=== PATIENT | female | born 1985 | race Caucasian/White ===

== ENCOUNTER 2018-03-17 08:38 | Emergency (ER) | payer BC ==
[2018-03-17 08:49] VITALS: BP 133/82
[2018-03-17 10:06] LABS: ABSOLUTE LYMPHOCYTES (AUTO) 1.8 10^3/uL (0.5-4.7); ABSOLUTE MONOCYTES (AUTO) 0.5 10^3/uL (0.1-1.4); ABSOLUTE NEUT (AUTO) 6.2 10^3/uL (1.7-8.2); BASOPHILS % (AUTO) 0.5 % (0-2); EOSINOPHILS % (AUTO) 0.3 % (0-6); HEMATOCRIT 40.4 % (36.0-47.0); HEMOGLOBIN 14.1 g/dL (12.0-15.5); MEAN CORPUSCULAR HEMOGLOBIN 31.8 pg (27.0-33.4); MEAN CORPUSCULAR VOLUME 91 fl (80-97); MONOCYTES % (AUTO) 5.8 % (3-13); PLATELET COUNT 240 10^3/uL (150-450); RED BLOOD COUNT 4.44 10^6/uL (3.72-5.28); RED CELL DISTRIBUTION WIDTH 12.4 % (11.5-14.0); SEGMENTED NEUTROPHILS % (AUTO) 72.4 % (42-78); TOTAL CELLS COUNTED % (AUTO) 100 %; WHITE BLOOD COUNT 8.6 10^3/uL (4.0-10.5)
[2018-03-17 10:17] LABS: APPEARANCE,URINE SLIGHTLY-CLOUDY; COLOR,URINE YELLOW; GLUCOSE, URINE NEGATIVE (NEGATIVE)
[2018-03-17 10:18] LABS: BILIRUBIN,URINE NEGATIVE (NEGATIVE); KETONES,URINE 100 mg/dL (NEGATIVE); LEUKOCYTE ESTERASE,URINE LARGE (NEGATIVE); NITRITE,URINE NEGATIVE (NEGATIVE); PROTEIN,URINE 30 mg/dL (NEGATIVE); URINE SPECIFIC GRAVITY 1.027; UROBILINOGEN,URINE NEGATIVE mg/dL (<2.0)
[2018-03-17 10:34] LABS: ALANINE AMINOTRANSFERASE 22 U/L (9-52); ALBUMIN 4.5 g/dL (3.5-5.0); ALKALINE PHOSPHATASE 40 U/L (38-126); ANION GAP 12 (5-19); ASPARTATE AMINO TRANSFERASE 22 U/L (14-36); BILIRUBIN,DIRECT 0.4 mg/dL (0.0-0.4); BLOOD UREA NITROGEN 18 mg/dL (7-20); CALCIUM 9.5 mg/dL (8.4-10.2); CARBON DIOXIDE 22 mmol/L (22-30); CHLORIDE 104 mmol/L (98-107); GLUCOSE 81 mg/dL (75-110); LIPASE 98.3 U/L (23-300); POTASSIUM 4.3 mmol/L (3.6-5.0); SODIUM 137.5 mmol/L (137-145); TOTAL PROTEIN 7.8 g/dL (6.3-8.2)
[2018-03-17] MEDS ORDERED: CEFTRIAXONE INJ 1000 MG VIAL IV ONE (11:46)
--- NOTE | 2018-03-17 11:46 | ER Document Report ---
ED GI/ - General Chief Complaint: Vag Bleeding, +preg <12wks Stated Complaint: VAGINAL BLEEDING Time Seen by Provider: 03/17/18 11:15 Mode of Arrival: Ambulatory Information source: Patient Notes: Patient presents stating that she is but uncertain how far long she may be. Patient states she developed vaginal discharge today and has had cramping for the past 2 weeks. Patient denies any fever or back pain. Patient does complain of some nausea. Patient denies any vomiting or diarrhea. Patient denies any fever. TRAVEL OUTSIDE OF THE [place] IN LAST 30 DAYS: No - HPI Patient complains to provider of: Pelvic pain, , Vaginal discharge. No : Vomiting Onset: Other Timing/Duration: Persistent - 2 weeks Quality of pain: Cramping Pain Level: 2 Location: Pelvis Menstrual period history: Sexual history: Active Associated symptoms: Nausea, Vaginal discharge. 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 denies: Fever, Recent illness EENT: No symptoms reported Cardiovascular: No symptoms reported. denies: Chest pain Respiratory: No symptoms reported. denies: Cough Gastrointestinal: Abdominal pain, Nausea. denies: Diarrhea, Vomiting Genitourinary: Dysuria Female Genitourinary: , Vaginal discharge Musculoskeletal: No symptoms reported. denies: Back pain Skin: No symptoms reported Hematologic/Lymphatic: No symptoms reported Neurological/Psychological: No symptoms reported Physical Exam - Vital signs Vitals: Temp Pulse Resp BP Pulse Ox 98.4 F 90 16 133/82 H 100 03/17/18 08:47 03/17/18 08:47 03/17/18 08:47 03/17/18 08:47 03/17/18 08:47 - General General appearance: Appears well, Alert In distress: None - HEENT Head: Normocephalic, Atraumatic Eyes: Normal Conjunctiva: Normal Nasal: Normal Mouth/Lips: Normal Mucous membranes: Normal Neck: Normal, Supple. No: Lymphadenopathy - Respiratory Respiratory status: No respiratory distress Chest status: Nontender Breath sounds: Normal. No: Rales, Rhonchi, Stridor, Wheezing Chest palpation: Normal - Cardiovascular Rhythm: Regular Heart sounds: S1 appreciated, S2 appreciated Murmur: No - Abdominal Inspection: Normal Distension: No distension Bowel sounds: Normal Tenderness: Tender - Lower pelvic Organomegaly: No organomegaly - Genitourinary External exam: Normal Speculum exam: Vaginal discharge Vaginal bleeding: None Bimanuel exam: Normal. No: Cervical motion tender, Adnexal mass, Adnexal tenderness - Back Back: Normal, Nontender. No: CVA tenderness - Extremities General upper extremity: Normal inspection, Normal ROM General lower extremity: Normal inspection, Normal ROM - Neurological Neuro grossly intact: Yes Cognition: Normal [place] Coma Scale Eye Opening: Spontaneous [place] Coma Scale Verbal: Oriented [place] Coma Scale Motor: Obeys Commands [place] Coma Scale Total: 15 - Psychological Associated symptoms: Normal affect, Normal mood - Skin Skin Temperature: Warm Skin Moisture: Dry Skin Color: Normal Course - Re-evaluation Re-evalutation: 03/17/18 13:53 Ultrasound report reviewed, patient with gestational sac without pole at this time. Will give patient ectopic precautions with orders for return in 48 hours for repeat blood draw to further evaluate status. Patient with UTI, no concern for pyelonephritis at this time. Urine culture is pending at this time. - Vital Signs Vital signs: Temp Pulse Resp BP Pulse Ox 98.4 F 90 16 133/82 H 100 03/17/18 08:47 03/17/18 08:47 03/17/18 08:47 03/17/18 08:47 03/17/18 08:47 - Laboratory Result Diagrams: 03/17/18 09:35 03/17/18 09:35 Laboratory results interpreted by me: 03/17/18 03/17/18 09:35 09:35 Beta HCG, Quant 88904.00 H Urine Protein 30 H Urine Ketones 100 H Urine Blood MODERATE H Ur Leukocyte Esterase LARGE H Urine Ascorbic Acid 40 H 03/17/18 13:53 Labs- Entire Visit 03/17/18 03/17/18 03/17/18 09:35 09:35 09:35 WBC 8.6 RBC 4.44 Hgb 14.1 Hct 40.4 MCV 91 MCH 31.8 MCHC 35.0 RDW 12.4 Plt Count 240 Seg Neutrophils % 72.4 Lymphocytes % 21.0 Monocytes % 5.8 Eosinophils % 0.3 Basophils % 0.5 Absolute Neutrophils 6.2 Absolute Lymphocytes 1.8 Absolute Monocytes 0.5 Absolute Eosinophils 0.0 Absolute Basophils 0.0 Sodium 137.5 Potassium 4.3 Chloride 104 Carbon Dioxide 22 Anion Gap 12 BUN 18 Creatinine 0.78 Est GFR ( Amer) > 60 Est GFR (Non-Af Amer) > 60 Glucose 81 Calcium 9.5 Total Bilirubin 1.0 Direct Bilirubin 0.4 Neonat Total Bilirubin Not Reportable Neonat Direct Bilirubin Not Reportable Neonat Indirect Bili Not Reportable AST 22 ALT 22 Alkaline Phosphatase 40 Total Protein 7.8 Albumin 4.5 Lipase 98.3 Beta HCG, Quant 07297.00 H Total Beta HCG POSITIVE Urine Color YELLOW Urine Appearance SLIGHTLY-CLOUDY Urine pH 6.0 Ur Specific [place] 1.027 Urine Protein 30 H Urine Glucose (UA) NEGATIVE Urine Ketones 100 H Urine Blood MODERATE H Urine Nitrite NEGATIVE Urine Bilirubin NEGATIVE Urine Urobilinogen NEGATIVE Ur Leukocyte Esterase LARGE H Urine WBC (Auto) 15 Urine RBC (Auto) 3 Urine Bacteria (Auto) 1+ Squamous Epi Cells Auto 11 Urine Mucus (Auto) FEW Urine Ascorbic Acid 40 H Trichomonas (Wet Prep) Vaginal WBC Vaginal RBC Vaginal Yeast Blood Type Rhogam Indicated 03/17/18 03/17/18 03/17/18 12:00 12:36 13:18 WBC RBC Hgb Hct MCV MCH MCHC RDW Plt Count Seg Neutrophils % Lymphocytes % Monocytes % Eosinophils % Basophils % Absolute Neutrophils Absolute Lymphocytes Absolute Monocytes Absolute Eosinophils Absolute Basophils Sodium Potassium Chloride Carbon Dioxide Anion Gap BUN Creatinine Est GFR ( Amer) Est GFR (Non-Af Amer) Glucose Calcium Total Bilirubin Direct Bilirubin Neonat Total Bilirubin Neonat Direct Bilirubin Neonat Indirect Bili AST ALT Alkaline Phosphatase Total Protein Albumin Lipase Beta HCG, Quant Total Beta HCG Urine Color Urine Appearance Urine pH Ur Specific [place] Urine Protein Urine Glucose (UA) Urine Ketones Urine Blood Urine Nitrite Urine Bilirubin Urine Urobilinogen Ur Leukocyte Esterase Urine WBC (Auto) Urine RBC (Auto) Urine Bacteria (Auto) Squamous Epi Cells Auto Urine Mucus (Auto) Urine Ascorbic Acid Trichomonas (Wet Prep) NO TRICHOMONAS SEEN Vaginal WBC FEW WBCS SEEN Vaginal RBC FEW RBCS SEEN Vaginal Yeast NO YEAST SEEN Blood Type Cancelled A POSITIVE Rhogam Indicated Cancelled RHOGAM NOT INDICATED - Diagnostic Test Radiology reviewed: Reports reviewed Discharge - Discharge Clinical Impression: test positive, Pelvic pain UTI (urinary tract infection) Qualifiers: Urinary tract infection type: site unspecified Hematuria presence: with hematuria Qualified Code(s): N39.0 - Urinary tract infection, site not specified Condition: Stable Disposition: HOME, SELF-CARE Instructions: Cephalexin ([facility]), Ectopic Precaution ([facility]), Urinary Tract Infection ([facility]) Additional Instructions: Return immediately for any new or worsening symptoms Followup with your primary care provider, call tomorrow to make a followup appointment Return to lab in 48 hours for repeat blood draw. Patient to bring the order sheet with you. Follow-up with an [facility] provider to further evaluate your status. Urine culture is pending, we will call if you need any different treatment. Prescriptions: Cephalexin Monohydrate [Keflex 500 mg Capsule] 500 mg PO Q6H 3 Days capsule Cephalexin Monohydrate [Keflex 500 mg Capsule] 500 mg PO Q6H 2 Days capsule Forms: Follow-Up Laboratory Testing [facility] [NO LOCAL MD] - Follow up as needed [facility] [Provider Group] - Follow up as needed
[2018-03-17] MEDS ORDERED: NORMAL SALINE 1000 ML 1,000 ML IV ONE (12:15)
--- NOTE | 2018-03-17 13:13 | RADIOLOGY REPORT (SQ) ---
EXAM DESCRIPTION: U/S OB TRANSVAGINAL W/O DOP COMPLETED DATE/TIME: 03/17/2018 1:02 pm REASON FOR STUDY: pelvic pain COMPARISON: None. TECHNIQUE: Transabdominal static and realtime grayscale images acquired of the pelvis. Additional se lected spectral and color Doppler images recorded. All images stored on PACs. bHC,080 LIMITATIONS: None. FINDINGS: UTERUS: No masses. No anomalies. GESTATIONAL SAC: Yes. 6 weeks 1 day YOLK SAC: No POLE: No RIGHT ADNEXA: Normal ovary with normal vascular flow. No adnexal free fluid. No adnexal masses. LEFT ADNEXA: Normal ovary with normal vascular flow. No adnexal free fluid. No adnexal masses. FREE FLUID: None. OTHER: No other significant finding. IMPRESSION: POSSIBLE EARLY INTRAUTERINE . BHCG LEVEL APPROPRIATE FOR ENDOMETRIAL FINDINGS. CONSIDER F/U BHCG AND/OR ULTRASOUND FOR VERIFICATION AND TO EXCLUDE ECTOPIC . Trimester of : First - 0 to 13 weeks. COMMENT: HCG levels in early chart *3 weeks: 5-50 mIU/ml *4 weeks: 5-426 mIU/ml *5 weeks: 18-7,340 mIU/ml *6 weeks: 1,080-56,500 mIU/ml *7-8 weeks: 7,560-229,000 mIU/ml *9-12 weeks: 25,700- 288,000 mIU/ml *13-16 weeks: 13,300-254,000 mIU/ml *17-24 weeks: 4,060-165,400 mIU/ml *25-40 weeks: 3,640-117,000 mIU/ml TECHNICAL DOCUMENTATION: JOB ID: [id number] [employer]- All Rights Reserved Reading location - IP/workstation name: [email or web address]
[2018-03-17 13:46] LABS: RBCS (WET MOUNT) FEW RBCS SEEN; T.VAGINALIS (WET MOUNT) NO TRICHOMONAS SEEN; WBCS (WET MOUNT) FEW WBCS SEEN; YEAST (WET MOUNT) NO YEAST SEEN
[2018-03-17 15:17] LABS: CHLAM PCR NOT DETECTED (NOT DETECT); GON PCR NOT DETECTED (NOT DETECT)
== END 2018-03-17 15:45 | disposition home or self-care (01) ==
LOC: ER 08:38
DX: O23.41 Unspecified infection of urinary tract in pregnancy, first trimester (principal); Z3A.01 Less than 8 weeks gestation of pregnancy
CPT/HCPCS: 99284; 96361; 96374; 86900; 86901; 36415; 87086; 87210; 84702; 83690; 85025; 80053; 81001; 87491; 87591; 76817; J0696

== ENCOUNTER → 2018-03-25 | Outpatient (CLI) | payer BC | LOC: OD 12:59 | PROVIDERS: ATTEND Student in an Organized Health Care Education/Training Program | DX: O36.80X0 Pregnancy with inconclusive fetal viability, not applicable or unspecified (principal); Z3A.00 Weeks of gestation of pregnancy not specified | CPT/HCPCS: 36415; 84702; 86900; 86901 ==

== ENCOUNTER 2018-09-25 06:24 | Day surgery (SDC) | payer BC ==
[2018-09-25] MEDS ORDERED: DOXYCYCLINE HYCLATE 100 MG in DEXTROSE 5%-WATER 250 ML IV PRN (06:40)
[2018-09-25] MEDS ORDERED: RINGERS SOLUTION,LACTATED 1,000 ML IV PRN (06:40)
[2018-09-25] MEDS ORDERED: MISOPROSTOL 0.2 MG TABLET ONE (07:23)
[2018-09-25 07:36] LABS: APPEARANCE,URINE CLOUDY; BILIRUBIN,URINE NEGATIVE (NEGATIVE); COLOR,URINE YELLOW; GLUCOSE, URINE NEGATIVE (NEGATIVE); KETONES,URINE NEGATIVE (NEGATIVE); LEUKOCYTE ESTERASE,URINE SMALL (NEGATIVE); NITRITE,URINE NEGATIVE (NEGATIVE); PROTEIN,URINE NEGATIVE (NEGATIVE); UROBILINOGEN,URINE NEGATIVE mg/dL (<2.0)
[2018-09-25] MEDS ORDERED: EPHEDRINE SULFATE INJ 50 MG/1 ML AMPULE ONE (07:56)
[2018-09-25] MEDS ORDERED: KETAMINE HCL INJ 500 MG/10 ML VIAL ONE (07:56)
[2018-09-25] MEDS ORDERED: FENTANYL CITRATE INJ/PF 100 MCG/2 ML AMPUL ONE (07:56)
[2018-09-25] MEDS ORDERED: MIDAZOLAM 2 MG/2 ML INJ ONE (07:56)
[2018-09-25] MEDS ORDERED: PROPOFOL INJ 200 MG/20 ML VIAL IV ONE (07:56)
[2018-09-25] MEDS ORDERED: ACETAMINOPHEN 1,000 MG/100 ML RTUPB IV ONE (07:57)
[2018-09-25 08:24] LABS: HEMATOCRIT 37.3 % (36.0-47.0); MEAN CORPUSCULAR HEMOGLOBIN 31.7 pg (27.0-33.4); MEAN CORPUSCULAR VOLUME 90 fl (80-97); PLATELET COUNT 208 10^3/uL (150-450); RED BLOOD COUNT 4.12 10^6/uL (3.72-5.28); RED CELL DISTRIBUTION WIDTH 13.1 % (11.5-14.0); WHITE BLOOD COUNT 7.3 10^3/uL (4.0-10.5)
[2018-09-25] MEDS ORDERED: DEXAMETHASONE SOD PHOSPHATE INJ 4 MG/1 ML VIAL ONE (08:38)
[2018-09-25] MEDS ORDERED: LIDOCAINE 2% INJ-PF (20 MG/ML) 2 ML AMPUL ONE (08:38)
[2018-09-25] MEDS ORDERED: METOCLOPRAMIDE HCL INJ/PF 10 MG/2 ML SDV ONE (08:38)
[2018-09-25] MEDS ORDERED: GLYCOPYRROLATE 1 MG/5 ML SYRINGE ONE (08:38)
[2018-09-25] MEDS ORDERED: ONDANSETRON HCL INJ/PF 4 MG/2 ML SDV ONE (08:38)
[2018-09-25] MEDS ORDERED: KETOROLAC TROMETHAMINE 60 MG/2 ML SDV ONE (08:38)
--- NOTE | 2018-09-25 09:26 | Operative Report ---
Operative Report DATE OF SURGERY: 09/25/18 PREOPERATIVE DIAGNOSIS: 1. Missed at 8 weeks. 2. Rh+ POSTOPERATIVE DIAGNOSIS: Same OPERATION: Suction D&C SURGEON: AI BRISCOE ANESTHESIA: Moderate Sedation TISSUE REMOVED OR ALTERED: Products of conception COMPLICATIONS: None ESTIMATED BLOOD LOSS: 75 ml INTRAOPERATIVE FINDINGS: Uterus sounded 7.5 cm; moderate amounts of products of conception; 8 mm curved Iranian curette used PROCEDURE: After appropriate consents had been obtained, the patient was taken to the Operating Room where general anesthesia was placed without difficulty. She was prepped and draped in the normal sterile fashion in the dorsal lithotomy position. Exam under anesthesia was performed with an 8 week sized uterus and no adnexal pathology palpable. Straight catheter urine was obtained and approximately 50 mL of urine. A speculum was placed in the vagina. The anterior lip the cervix was grasped with a single-tooth tenaculum. The uterus sounded to 7.5 cm. Sequential dilators were then used to dilate the cervix to a size 24. Size 8 suction catheter was introduced and products of conception were removed. The suction catheter was removed and gentle curettage was then undertaken throughout the cavity. The suction catheter was introduced once again and additional products of conception and blood clot were removed. The curette was once again introduced and the cavity was,felt to be empty of further tissue. All instruments were then removed. The uterus was hemostatic. Sponge and instrument counts were correct x2. Patient was given doxycycline 100 mg IV piggyback intraoperatively. She was also given Cytotec 800 mcg per rectum at t he end of the procedure. Patient tolerated procedure well and transferred to recovery in stable condition.
[2018-09-25 11:17] VITALS: BP 110/82
[2018-09-25] MEDS ORDERED: DIPHENHYDRAMINE HCL 50 MG/ML VIAL IV PRN (12:41)
== END 2018-09-25 10:40 | disposition home or self-care (01) ==
LOC: OROUT 06:24
PROVIDERS: ATTEND Obstetrics & Gynecology
DX: O02.1 Missed abortion (principal); Z79.899 Other long term (current) drug therapy; Z79.1 Long term (current) use of non-steroidal anti-inflammatories (NSAID); E07.9 Disorder of thyroid, unspecified; Z01.818 Encounter for other preprocedural examination
CPT/HCPCS: 36415; 85027; 81001; 88305 ×2; 59820; J2250; J1100; J3490 ×4; J1885; J3010; J2765; J2405; J7060; J2704; J0131; 1965

== ENCOUNTER 2019-09-29 19:40 | Inpatient (IN) | payer BC ==
[2019-09-29] MEDS: RINGERS SOLUTION,LACTATED 1,000 ML IV PRN (20:26)
[2019-09-29] MEDS ORDERED: DINOPROSTONE 10 MG VAGINAL INSERT.SR PV PRN (20:35)
[2019-09-29] MEDS ORDERED: RINGERS SOLUTION,LACTATED 1,000 ML IV ONE (20:35)
[2019-09-29 20:39] LABS: APPEARANCE,URINE SLIGHTLY-CLOUDY; BILIRUBIN,URINE NEGATIVE (NEGATIVE); COLOR,URINE YELLOW; GLUCOSE, URINE 50 mg/dL (NEGATIVE); KETONES,URINE NEGATIVE (NEGATIVE); LEUKOCYTE ESTERASE,URINE NEGATIVE (NEGATIVE); NITRITE,URINE NEGATIVE (NEGATIVE); PROTEIN,URINE 30 mg/dL (NEGATIVE); URINE SPECIFIC GRAVITY 1.023; UROBILINOGEN,URINE NEGATIVE mg/dL (<2.0)
[2019-09-29 20:55] LABS: ABSOLUTE EOSINOPHILS # (AUTO) 0.4 10^3/uL (0.0-0.6); ABSOLUTE NEUT (AUTO) 11.8 10^3/uL (1.7-8.2); BASOPHILS % (AUTO) 0.2 % (0-2); EOSINOPHILS % (AUTO) 2.4 % (0-6); HEMATOCRIT 30.8 % (36.0-47.0); LYMPHOCYTES % (AUTO) 13.2 % (13-45); MEAN CORPUSCULAR HEMOGLOBIN 30.3 pg (27.0-33.4); MEAN CORPUSCULAR HGB CONC 35.7 g/dL (32.0-36.0); MEAN CORPUSCULAR VOLUME 85 fl (80-97); MONOCYTES % (AUTO) 6.8 % (3-13); PLATELET COUNT 433 10^3/uL (150-450); RED BLOOD COUNT 3.62 10^6/uL (3.72-5.28); RED CELL DISTRIBUTION WIDTH 14.5 % (11.5-14.0); SEGMENTED NEUTROPHILS % (AUTO) 77.4 % (42-78); TOTAL CELLS COUNTED % (AUTO) 100 %; WHITE BLOOD COUNT 15.2 10^3/uL (4.0-10.5)
[2019-09-29 20:55] LABS: URINE AMPHETAMINES SCREEN NEGATIVE; URINE BARBITURATES SCREEN NEGATIVE; URINE BENZODIAZEPINES SCREEN NEGATIVE; URINE COCAINE SCREEN NEGATIVE; URINE MARIJUANA (THC) SCREEN NEGATIVE; URINE METHADONE SCREEN NEGATIVE; URINE PHENCYCLIDINE SCREEN NEGATIVE
[2019-09-29] MEDS ORDERED: DINOPROSTONE 10 MG VAGINAL INSERT.SR ONE (20:55)
[2019-09-30] MEDS: RINGERS SOLUTION,LACTATED 1,000 ML IV PRN ×2 (01:27→18:19)
[2019-09-30] MEDS ORDERED: MISOPROSTOL 0.2 MG TABLET ONE (08:22)
[2019-09-30] MEDS ORDERED: LIDOCAINE 1% INJ-PF (10 MG/ML) 30 ML SDV ONE (08:22)
[2019-09-30] MEDS ORDERED: OXYTOCIN 10 UNIT/ML VIAL ONE (08:22)
[2019-09-30] MEDS ORDERED: OXYTOCIN/NORMAL SALINE 20 UNIT/1,000 ML RTUINJ ONE (08:23)
[2019-09-30 09:01] LABS: ABSOLUTE BASOPHILS # (AUTO) 0.1 10^3/uL (0.0-0.2); ABSOLUTE EOSINOPHILS # (AUTO) 0.2 10^3/uL (0.0-0.6); ABSOLUTE LYMPHOCYTES (AUTO) 1.6 10^3/uL (0.5-4.7); ABSOLUTE MONOCYTES (AUTO) 0.9 10^3/uL (0.1-1.4); ABSOLUTE NEUT (AUTO) 13.2 10^3/uL (1.7-8.2); BASOPHILS % (AUTO) 0.3 % (0-2); EOSINOPHILS % (AUTO) 1.1 % (0-6); HEMATOCRIT 31.2 % (36.0-47.0); HEMOGLOBIN 10.9 g/dL (12.0-15.5); MEAN CORPUSCULAR HEMOGLOBIN 29.4 pg (27.0-33.4); MEAN CORPUSCULAR HGB CONC 34.8 g/dL (32.0-36.0); MEAN CORPUSCULAR VOLUME 85 fl (80-97); MONOCYTES % (AUTO) 5.4 % (3-13); PLATELET COUNT 440 10^3/uL (150-450); RED BLOOD COUNT 3.69 10^6/uL (3.72-5.28); RED CELL DISTRIBUTION WIDTH 14.1 % (11.5-14.0); SEGMENTED NEUTROPHILS % (AUTO) 83.2 % (42-78); TOTAL CELLS COUNTED % (AUTO) 100 %; WHITE BLOOD COUNT 15.9 10^3/uL (4.0-10.5)
--- NOTE | 2019-09-30 09:46 | Admission Physical ---
Datetime Report Generated by CPN: 09/30/2019 09:45 CURRENT ADMISSION Hx Assessment: The History has been Reviewed and is Current Chief Complaint: Scheduled Induction of Labor Indication for Induction: Gestational HTN; Other Indication for Induction- Other: borderline oligo Admit Impression : Term, Intrauterine Admit Plan: Admit to Unit; Initiate Labor Induction Protocol ALLERGIES Medication Allergies: No Medication Allergies: No Known Allergies (09/24/2018) Latex: No Latex Allergies Food Allergies: N/A Environmental Allergies: N/A OBSTETRICAL HISTORY EDC: 10/05/2019 00:00 : 3 Para: 0 Term: 0 : 0 SAB: 0 IAB: 0 Ectopic: 0 Livin Cesareans: 0 VBACs: 0 Multiple Births: 0 Gestational Diabetes: No Rh Sensitization: No Incompetent Cervix: No ZARIA: No Infertility: No ART Treatment: No Uterine Anomaly: No IUGR: No Hx Previous C/S: No Macrosomia: No Hx Loss/Stillborn: No PIH: Yes Hx : No Placenta Previa/Abruption: No Depression/PP Depression: Yes PTL/PROM: No Post Hemorrhage: No Current Procedures: Ultrasound; NST Obstetrical History Comments: G1 - 2018, SAB, 10 weeks G2 - 2019, SAB, 10 weeks G3 - Current SEE RECORDS Alcohol: No Marijuana : No Cocaine: No Other Illicit Drugs: No Cigarettes: Never Smoker. 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, D_C in 2019 INFECTIOUS HISTORY Gonorrhea: No Genital Herpes: No Chlamydia: No Tuberculosis: No Syphilis: No Hepatitis: No HIV/AIDS Exposure: No Rash or Viral Illness: No HPV: No PHYSICAL EXAM General: Normal Lungs: Normal Abdomen: Normal Extremities: Normal DTRs: Normal Pelvic Type: Adequate Vital Signs: Reviewed Details Vital Signs: mild range x1 VAGINAL EXAM Contraction Comments: 2-4 MEMBRANES Membranes: Intact FETUS A EGA: 39.2 Monitoring: External US FHR Category: Category I Presentation: Vertex (Annotations: Data stored by [facility] on behalf of user) Admit Comment: 34yo GBS neg, A pos, RI. Admitted into unit last night for IOL secondary to GHTN and borderline oligo. Pt had cervidil overnight and ready for pitocin this AM. Hx also significant for AMA and Latoya's. 24h urine was 107 on 09/11/19. PLan is to continue IOL with pitocin at this time. 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 PLANS FOR LABOR AND DELIVERY Labor and Delivery: None Pain Management: Epidural Feeding Preference: Breast Benefit of Breast Feed Discussed: Yes Circumcision: Yes INFORMED CONSENT Assignment: Renée Joya MD Signature: with User ID: [email or web address] : with User ID: [email or web address]
[2019-09-30 11:54] LABS: ALBUMIN 3.2 g/dL (3.5-5.0); ALKALINE PHOSPHATASE 172 U/L (38-126); ANION GAP 9 (5-19); ASPARTATE AMINO TRANSFERASE 36 U/L (14-36); BILIRUBIN,TOTAL 0.5 mg/dL (0.2-1.3); BLOOD UREA NITROGEN 7 mg/dL (7-20); CALCIUM 8.9 mg/dL (8.4-10.2); CARBON DIOXIDE 19 mmol/L (22-30); CHLORIDE 104 mmol/L (98-107); GLUCOSE 92 mg/dL (75-110); POTASSIUM 4.3 mmol/L (3.6-5.0); TOTAL PROTEIN 6.3 g/dL (6.3-8.2); URIC ACID 3.8 mg/dL (2.5-7.0)
[2019-09-30] MEDS ORDERED: BUPIVACAINE HCL 0.25 % INJ/PF (2.5 MG/1 ML) 30 ML VIAL ONE ×2 (14:26→19:56)
[2019-09-30] MEDS ORDERED: FENTANYL/BUPIVACAINE/NS/PF 0 MCG/0 ML RTUINJ EPI ONE (14:26)
[2019-09-30] MEDS ORDERED: EPHEDRINE SULFATE INJ 50 MG/1 ML AMPULE ONE ×2 (14:26→19:55)
[2019-09-30] MEDS ORDERED: LIDOCAINE 2% INJ-PF (20 MG/ML) 10 ML AMPUL ONE (16:04)
[2019-09-30] MEDS ORDERED: FENTANYL/BUPIVACAINE/NS/PF 300 MCG/150 ML RTUINJ EPI ONE (19:56)
[2019-10-01] MEDS ORDERED: ACETAMINOPHEN 325 MG TABLET ONE (02:40)
[2019-10-01] MEDS ORDERED: GENTAMICIN SULFATE INJ 80 MG/2 ML VIAL IV ONE (02:49)
[2019-10-01] MEDS ORDERED: GENTAMICIN SULFATE INJ 80 MG/2 ML VIAL ONE (02:50)
[2019-10-01] MEDS ORDERED: AMPICILLIN SOD INJ 2 GM VIAL ONE (02:51)
[2019-10-01] MEDS ORDERED: AMPICILLIN SOD INJ 2 GM VIAL IV SCH (03:00)
[2019-10-01] MEDS ORDERED: GENTAMICIN SULFATE INJ 80 MG/2 ML VIAL IV PRN (03:05)
[2019-10-01] MEDS ORDERED: GENTAMICIN SULFATE 120 MG in DEXTROSE 5%-WATER 100 ML IV ONE (03:15)
[2019-10-01] MEDS ORDERED: OXYTOCIN/NORMAL SALINE 20 UNIT/1,000 ML RTUINJ ONE (05:29)
[2019-10-01] MEDS ORDERED: DIBUCAINE 1% OINTMENT 28 GM TP PRN (06:39)
[2019-10-01] MEDS ORDERED: ZOLPIDEM TARTRATE 5 MG TABLET PO PRN (06:39)
[2019-10-01] MEDS ORDERED: ACETAMINOPHEN 650 MG SUPP.RECT PR PRN (06:39)
[2019-10-01] MEDS ORDERED: PROMETHAZINE HCL INJ 25 MG/1 ML VIAL IV PRN (06:39)
[2019-10-01] MEDS ORDERED: PSEUDOEPHEDRINE HCL 30 MG TABLET PO PRN (06:39)
[2019-10-01] MEDS ORDERED: ACETAMINOPHEN WITH CODEINE #3 TABLET PO PRN ×2 (06:39)
[2019-10-01] MEDS ORDERED: NA PHOS,M-B/NA PHOS,DI-BA (ADULT) 133 ML ENEMA PR PRN (06:39)
[2019-10-01] MEDS ORDERED: MEASLES,MUMPS&RUBELLA VACC/PF 0.5 ML VIAL SUBCUT PRN (06:39)
[2019-10-01] MEDS ORDERED: PROMETHAZINE HCL 25 MG SUPP.RECT PR PRN (06:39)
[2019-10-01] MEDS ORDERED: DIPHENHYDRAMINE HCL 25 MG CAPSULE PO PRN (06:39)
[2019-10-01] MEDS ORDERED: BENZOCAINE/MENTHOL AEROSOL SPRAY 56 ML TOP PRN (06:39)
[2019-10-01] MEDS ORDERED: PROMETHAZINE HCL 25 MG TABLET PO PRN (06:39)
[2019-10-01] MEDS ORDERED: MAGNESIUM HYDROXIDE SUSP 30 ML UDCUP PO PRN (06:39)
[2019-10-01] MEDS ORDERED: OXYTOCIN/NORMAL SALINE 20 UNIT/1,000 ML RTUINJ IV PRN (06:39)
[2019-10-01] MEDS ORDERED: GLYCERIN/WITCH HAZEL LEAF 1 EACH MED..WIPE TP PRN (06:39)
[2019-10-01] MEDS ORDERED: DIPH/PERTUSS(ACELL)/TETANUS VAC/PF 0.5 ML SYR (>=10YO) IM PRN (06:39)
[2019-10-01] MEDS ORDERED: IBUPROFEN 800 MG TABLET PO ONE (07:00)
[2019-10-01] MEDS ORDERED: IBUPROFEN 800 MG TABLET ONE (08:04)
[2019-10-01] MEDS: AMPICILLIN SODIUM 2 GM in NORMAL SALINE 100 ML IV SCH ×3 (08:14→21:16)
--- NOTE | 2019-10-01 09:20 | Warning Signs in Babies ---
VOD Warning Signs Datetime Report Generated by [facility]: 10/01/2019 09:20 VOD#608 -Warning Signs in Babies: Needs to be viewed. (09/29/2019 20:05:Belkys Stiles RN)
--- NOTE | 2019-10-01 09:20 | Delivery Summary ---
Del Sum A-C Datetime Report Generated by CPN: 10/01/2019 09:20 DELIVERY PERSONNEL DELIVERY PERSONNEL: [id number] Delivery Doctor:: Renée Joya MD Labor and Delivery Nurse:: Radhika Delong RNsample sewer Nurse:: Belkys Stiles RN Nursery Nurse:: CEE Hahn Specimen Processor/GLOBAL ACCOUNT EXECUTIVE: Letitia Rosario CNA II Additional Personnel: : Meera Riuz RN MATERNAL INFORMATION Delivery Anesthesia: Epidural Medications After Delivery: Pitocin Bolus-Please Comment Meds After Delivery Comment: Pitocin 20units in 1000ml NSS Estimated Blood Loss (ml): 200 Delivery QBL: 0 Maternal Complications: Maternal Fever Provider Comments: Called to room as patient was completely dilated and plus 2 station. Delivered head in BEV presentation. After delivery of the head, the shoulders and rest of the body delivered without difficulty Infant vigorous at time of delivery so cord clamping was delayed for 30 seconds. After cord doubly clamped and cut, the infant was handed off to RN from nursery. Nasal and oral suctioning done prior to hand off during cord delay. Both mother and stable. LABOR SUMMARY EDC: 10/05/2019 00:00 No. Babies in Womb: 1 Attempted: No Labor Anesthesia: Epidural LABOR INFORMATION Reason for Induction: Gestational Hypertension; Other Reason for Induction- Other: BORDERLINE OLIGO Onset of Labor: 09/30/2019 14:20 Complete Dilatation: 10/01/2019 04:49 Cervical Ripening Agents: Cervidil Oxytocin: Induction Group B Beta Strep: Negative Antibiotics # of Doses: 1 Antibiotics Time of Last Dose: 0400 Steroids Given: None Reason Steroids Not Administered: Not Applicable MEMBRANES Membranes Rupture Method: Artificial Rupture of Membranes: 09/30/2019 14:13 Length of Rupture (hr): 16.82 Amniotic Fluid Color: Clear Amniotic Fluid Amount: Small Amniotic Fluid Odor: None STAGES OF LABOR Stage 1 hr: 14 Stage 1 min: 29 Stage 2 hr: 2 Stage 2 min: 13 Stage 3 hr: 0 Stage 3 min: 12 Total Time in Labor hr: 16 Total Time in Labor min: 54 VAGINAL DELIVERY Episiotomy: None Laceration #1: Perineal Laceration Extension #1: Third Degree, IIIa (Less than 50 percent ext anal sphincter thickness torn) Laceration Repair: Yes Laceration Repair Note: LAYERED CLOSURE: [address] for external anal sphincter and perineal muscles. 2-0 chromic on SH for closure of skin Sponge Count Correct: N/A; Yes Sharps Count Correct: Yes CSECTION DELIVERY Primary Indication: N/A Secondary Indication: N/A CSection Incidence: N/A Labor: N/A Elective: N/A CSection Incision: N/A BABY A INFORMATION Infant Delivery Date/Time: 10/01/2019 07:02 Method of Delivery: Vaginal Born in Route : No : N/A Forceps: N/A Vacuum Extraction: N/A Shoulder Dystocia : No PRESENTATION/POSITION BABY A Presentation: Cephalic Cephalic Presentation: Vertex Vertex Position: Left Occipital Anterior Breech Presentation: N/A PLACENTA INFORMATION BABY A Placenta Delivery Time : 10/01/2019 07:14 Placenta Method of Delivery: Spontaneous Placenta Status: Delivered SCORES BABY A Heart Rate 1 min: >100 bpm Resp Effort 1 min: Good Cry Reflex Irritability 1 min: Cough or Sneeze or Pulls Away Muscle Tone 1 min: Active Motion Color 1 min: Blue/Pale Resuscitation Effort 1 min: Tactile Stimulation SCORE 1 MIN: 8 Heart Rate 5 min: >100 bpm Resp Effort 5 min: Good Cry Reflex Irritability 5 min: Cough or Sneeze or Pulls Away Muscle Tone 5 min: Active Motion Color 5 min: Body [place], Extremities Blue Resuscitation Effort 5 min: Tactile Stimulation SCORE 5 MIN: 9 Resuscitation Effort 10 min: N/A INFANT INFORMATION BABY A Gestational Age at Delivery: 39.2 Gestational Status: Full Term- 39- 40.6 Weeks Outcome : Liveborn Infant Condition : Stable Sex: Male IDENTIFICATION BABY A Verification Date/Time: 10/01/2019 07:14 ID Band Number: [id number] Mother's Name Verified: Yes RN Verifying : J. Niebuhr RN Additional Verifying Personnel: A. Suffolk RN WEIGHT/LENGTH BABY A Infant Birthweight (gm): 3420 Infant Weight (lb): 7 Weight (oz): 9 Infant Length (in): 19.00 Infant Length (cm): 48.26 CORD INFORMATION BABY A No. Cord Vessels: 3 Nuchal Cord : N/A Cord Blood Taken: Yes-For Storage (Mom's Blood type +) Suction: Mouth; Nose ASSESSMENT BABY A Infant Respirations: Appears Normal Skin to Skin: Yes Skin to Skin Time (min): 15 Transferred To: Remains with Mother BABY B INFORMATION : Failed SIGNATURES Signature: with User ID: [email or web address] : with User ID: [email or web address]
[2019-10-01] MEDS: DOCUSATE SODIUM 100 MG CAPSULE PO SCH ×2 (10:05→18:00)
[2019-10-01] MEDS: FAMOTIDINE 20 MG TABLET PO SCH ×2 (10:05→21:15)
[2019-10-01] MEDS: FERROUS SULFATE 325 MG TABLET PO SCH ×2 (10:05→18:01)
[2019-10-01] MEDS: PRENATAL VITAMIN W DHA CAPSULE PO SCH (10:05)
[2019-10-01] MEDS: SENNOSIDES/DOCUSATE 8.6-50 MG 1 EACH TABLET PO SCH (10:05)
[2019-10-01] MEDS: GENTAMICIN SULFATE 120 MG in DEXTROSE 5%-WATER 100 ML IV SCH ×2 (14:14→22:27)
[2019-10-01] MEDS: GENTAMICIN SULFATE INJ 80 MG/2 ML VIAL IV SCH ×2 (15:23→22:35)
[2019-10-01] MEDS: IBUPROFEN 800 MG TABLET PO SCH ×2 (15:45→21:16)
[2019-10-02] MEDS: AMPICILLIN SODIUM 2 GM in NORMAL SALINE 100 ML IV SCH ×3 (03:17→14:01)
[2019-10-02] MEDS: GENTAMICIN SULFATE 120 MG in DEXTROSE 5%-WATER 100 ML IV SCH (05:49)
[2019-10-02] MEDS: IBUPROFEN 800 MG TABLET PO SCH ×3 (05:51→21:44)
[2019-10-02] MEDS: GENTAMICIN SULFATE INJ 80 MG/2 ML VIAL IV SCH (06:05)
[2019-10-02 07:09] LABS: HEMOGLOBIN 8.9 g/dL (12.0-15.5); MEAN CORPUSCULAR HEMOGLOBIN 29.4 pg (27.0-33.4); MEAN CORPUSCULAR HGB CONC 34.3 g/dL (32.0-36.0); MEAN CORPUSCULAR VOLUME 86 fl (80-97); PLATELET COUNT 359 10^3/uL (150-450); RED BLOOD COUNT 3.04 10^6/uL (3.72-5.28); RED CELL DISTRIBUTION WIDTH 15.1 % (11.5-14.0); WHITE BLOOD COUNT 26.7 10^3/uL (4.0-10.5)
[2019-10-02] MEDS: LEVOTHYROXINE SODIUM 0.088 MG TABLET PO SCH (08:48)
[2019-10-02] MEDS: SENNOSIDES/DOCUSATE 8.6-50 MG 1 EACH TABLET PO SCH (09:08)
[2019-10-02] MEDS: FERROUS SULFATE 325 MG TABLET PO SCH ×2 (09:08→18:13)
[2019-10-02] MEDS: PRENATAL VITAMIN W DHA CAPSULE PO SCH (09:08)
[2019-10-02] MEDS: FAMOTIDINE 20 MG TABLET PO SCH ×2 (09:09→21:45)
[2019-10-02] MEDS: DOCUSATE SODIUM 100 MG CAPSULE PO SCH ×2 (09:09→18:13)
--- NOTE | 2019-10-02 09:10 | PDOC PROGRESS REPORT ---
Subjective-OB Progress Note for:: 10/02/19 Subjective: Doing well, no c/o, , voiding, scant lochia Physical Exam (OB) Vital Signs: Temp Pulse Resp BP Pulse Ox 97.5 F 92 18 116/72 99 10/02/19 07:23 10/02/19 07:23 10/02/19 07:23 10/02/19 07:23 10/02/19 07:23 Intake & Output 10/01/19 10/02/19 10/03/19 06:59 06:59 06:59 Intake Total 1000 1480 Balance 1000 1480 - Lochia Lochia Amount: Scant < 10 ml Lochia Color: Rubra/Red - Abdomen Description: Soft, Round Hernia Present: No Fundal Description: Firm, Midline Fundal Height: u/u - u/2 Objective-Diagnostic Laboratory: 10/02/19 06:35 09/30/19 11:18 10/02/19 06:35 WBC 26.7 H RBC 3.04 L Hgb 8.9 L Hct 26.0 L MCV 86 MCH 29.4 MCHC 34.3 RDW 15.1 H Plt Count 359 Assessment and Plan(PN) - Assessment and Plan (1) Obstetrical laceration, third degree Is this a current diagnosis for this admission?: Yes (2) Vaginal delivery Is this a current diagnosis for this admission?: Yes (3) Chorioamnionitis Qualifiers: Fetus number: single or unspecified fetus Trimester: third trimester Qualified Code(s): O41.1230 - Chorioamnionitis, third trimester, not applicable or unspecified Is this a current diagnosis for this admission?: Yes (4) Encounter for induction of labor Is this a current diagnosis for this admission?: Yes - Time Spent with Patient Time with patient: Less than 15 minutes Medications reviewed and adjusted accordingly: Yes - Disposition Anticipated Discharge: Home Within: within 24 hours
[2019-10-02] MEDS ORDERED: DIPH/PERTUSS(ACELL)/TETANUS VAC/PF 0.5 ML SYR (>=10YO) IM PRN (15:30)
[2019-10-02] MEDS ORDERED: MEASLES,MUMPS&RUBELLA VACC/PF 0.5 ML VIAL SUBCUT PRN (15:30)
[2019-10-02] MEDS: METRONIDAZOLE 500 MG TABLET PO SCH (18:13)
[2019-10-03] MEDS: IBUPROFEN 800 MG TABLET PO SCH ×2 (05:14→13:37)
[2019-10-03 08:30] LABS: HEMATOCRIT 25.4 % (36.0-47.0); MEAN CORPUSCULAR HEMOGLOBIN 29.9 pg (27.0-33.4); MEAN CORPUSCULAR HGB CONC 35.3 g/dL (32.0-36.0); MEAN CORPUSCULAR VOLUME 85 fl (80-97); PLATELET COUNT 359 10^3/uL (150-450); RED BLOOD COUNT 3.01 10^6/uL (3.72-5.28); RED CELL DISTRIBUTION WIDTH 15.1 % (11.5-14.0); WHITE BLOOD COUNT 17.4 10^3/uL (4.0-10.5)
--- NOTE | 2019-10-03 10:06 | PDOC PROGRESS REPORT ---
Subjective-OB Progress Note for:: 10/03/19 Subjective: Doing well, no c/o, resting soundly when entering room, ready to go home, baby may need to go under bili lights, Physical Exam (OB) Vital Signs: Temp Pulse Resp BP Pulse Ox 97.3 F 90 16 124/82 100 10/03/19 07:13 10/03/19 07:13 10/03/19 07:13 10/03/19 07:13 10/03/19 07:13 Intake & Output 10/02/19 10/03/19 10/04/19 06:59 06:59 06:59 Intake Total 1480 1550 Balance 1480 1550 - PIH/Pre-Eclampsia DTR's: 1 + Clonus: Negative Headache: Absent Epigastric Pain: No Visual Changes: No - Lochia Lochia Amount: Small 10-25 ml Lochia Color: Rubra/Red - Abdomen Description: Soft, Round Hernia Present: No Fundal Description: Firm, Midline Fundal Height: u/u - u/2 Objective-Diagnostic Laboratory: 10/03/19 08:04 09/30/19 11:18 10/03/19 08:04 WBC 17.4 H RBC 3.01 L Hgb 9.0 L Hct 25.4 L MCV 85 MCH 29.9 MCHC 35.3 RDW 15.1 H Plt Count 359 Assessment and Plan(PN) - Assessment and Plan (1) Obstetrical laceration, third degree Is this a current diagnosis for this admission?: Yes (2) Vaginal delivery Is this a current diagnosis for this admission?: Yes (3) Chorioamnionitis Qualifiers: Fetus number: single or unspecified fetus Trimester: third trimester Joel lified Code(s): O41.1230 - Chorioamnionitis, third trimester, not applicable or unspecified Is this a current diagnosis for this admission?: Yes (4) Encounter for induction of labor Is this a current diagnosis for this admission?: Yes - Time Spent with Patient Time with patient: Less than 15 minutes Medications reviewed and adjusted accordingly: Yes - Disposition Anticipated Discharge: Home Within: within 24 hours
[2019-10-03] MEDS: FERROUS SULFATE 325 MG TABLET PO SCH ×2 (10:09→17:18)
[2019-10-03] MEDS: FAMOTIDINE 20 MG TABLET PO SCH (10:09)
[2019-10-03] MEDS: SENNOSIDES/DOCUSATE 8.6-50 MG 1 EACH TABLET PO SCH (10:09)
[2019-10-03] MEDS: PRENATAL VITAMIN W DHA CAPSULE PO SCH (10:09)
[2019-10-03] MEDS: DOCUSATE SODIUM 100 MG CAPSULE PO SCH ×2 (10:09→17:18)
[2019-10-03] MEDS: METRONIDAZOLE 500 MG TABLET PO SCH ×2 (10:09→17:18)
--- NOTE | 2019-10-03 10:10 | PDOC DISCHARGE SUMMARY ---
Impression - Admit/DC Date/PCP Admission Date/Primary Care Provider: 09/29/19 19:40 Discharge Date: 10/03/19 - Discharge Diagnosis (1) Obstetrical laceration, third degree Is this a current diagnosis for this admission?: Yes (2) Vaginal delivery Is this a current diagnosis for this admission?: Yes (3) Chorioamnionitis Is this a current diagnosis for this admission?: Yes (4) Encounter for induction of labor Is this a current diagnosis for this admission?: Yes - Additional Information Resuscitation Status: Full Code Discharge Diet: As Tolerated Discharge Activity: Activity As Tolerated, Pelvic Rest Referrals: JCARLOS MENDEZ MD [ACTIVE STAFF] - ([facility]) Home Medications: Levothyroxine Sodium [Synthroid 0.088 mg Tablet] 0.088 mg PO QAM 03/17/18 Iron 18 mg PO BID 09/29/19 No122/Iron/Folic Acid [ Multi Tablet] 1 each PO DAILY 09/29/19 HPI Gestational Age: 39.2 Reason(s) for Admission: Induction of Labor, [facility] Admission Note: borderline oligo Procedures: NST, Ultrasound Intrapartum Procedure(s): Spontaneous Vaginal Delivery Intrapartum Procedure Note: maternal fever Complication(s): Laceration-Perineal Laceration-Degree: 3rd Hospital Course Hospital Course: routine Results Laboratory Results: WBC 17.4 10^3/uL (4.0-10.5) H 10/03/19 08:04 RBC 3.01 10^6/uL (3.72-5.28) L 10/03/19 08:04 Hgb 9.0 g/dL (12.0-15.5) L 10/03/19 08:04 Hct 25.4 % (36.0-47.0) L 10/03/19 08:04 MCV 85 fl (80-97) 10/03/19 08:04 MCH 29.9 pg (27.0-33.4) 10/03/19 08:04 MCHC 35.3 g/dL (32.0-36.0) 10/03/19 08:04 RDW 15.1 % (11.5-14.0) H 10/03/19 08:04 Plt Count 359 10^3/uL (150-450) 10/03/19 08:04 Lymph % (Auto) 10.0 % (13-45) L 09/30/19 08:48 [place] % (Auto) 5.4 % (3-13) 09/30/19 08:48 Eos % (Auto) 1.1 % (0-6) 09/30/19 08:48 Baso % (Auto) 0.3 % (0-2) 09/30/19 08:48 Absolute Neuts (auto) 13.2 10^3/uL (1.7-8.2) H 09/30/19 08:48 Absolute Lymphs (auto) 1.6 10^3/uL (0.5-4.7) 09/30/19 08:48 Absolute Monos (auto) 0.9 10^3/uL (0.1-1.4) 09/30/19 08:48 Absolute Eos (auto) 0.2 10^3/uL (0.0-0.6) 09/30/19 08:48 Absolute Basos (auto) 0.1 10^3/uL (0.0-0.2) 09/30/19 08:48 Seg Neutrophils % 83.2 % (42-78) H 09/30/19 08:48 Sodium 131.9 mmol/L (137-145) L 09/30/19 11:18 Potassium 4.3 mmol/L (3.6-5.0) 09/30/19 11:18 Chloride 104 mmol/L (98-107) 09/30/19 11:18 Carbon Dioxide 19 mmol/L (22-30) L 09/30/19 11:18 Anion Gap 9 (5-19) 09/30/19 11:18 BUN 7 mg/dL (7-20) 09/30/19 11:18 Creatinine 0.72 mg/dL (0.52-1.25) 09/30/19 11:18 Est GFR ( Amer) > 60 (>60) 09/30/19 11:18 Est GFR (MDRD) Non-Af > 60 (>60) 09/30/19 11:18 Glucose 92 mg/dL (75-110) 09/30/19 11:18 Uric Acid 3.8 mg/dL (2.5-7.0) 09/30/19 11:18 Calcium 8.9 mg/dL (8.4-10.2) 09/30/19 11:18 Total Bilirubin 0.5 mg/dL (0.2-1.3) 09/30/19 11:18 Direct Bilirubin 0.0 mg/dL (0.0-0.4) 09/30/19 11:18 Neonat Total Bilirubin Not Reportable 09/30/19 11:18 Neonat Direct Bilirubin Not Reportable 09/30/19 11:18 Neonat Indirect Bili Not Reportable 09/30/19 11:18 AST 36 U/L (14-36) 09/30/19 11:18 ALT 17 U/L (<35) 09/30/19 11:18 Alkaline Phosphatase 172 U/L (38-126) H 09/30/19 11:18 Lactate Dehydrogenase 165 U/L (120-246) 09/30/19 11:18 Total Protein 6.3 g/dL (6.3-8.2) 09/30/19 11:18 Albumin 3.2 g/dL (3.5-5.0) L 09/30/19 11:18 Urine Color YELLOW 09/29/19 19:55 Urine Appearance SLIGHTLY-CLOUDY 09/29/19 19:55 Urine pH 6.0 (5.0-9.0) 09/29/19 19:55 Ur Specific [place] 1.023 09/29/19 19:55 Urine Protein 30 mg/dL (NEGATIVE) H 09/29/19 19:55 Urine Glucose (UA) 50 mg/dL (NEGATIVE) H 09/29/19 19:55 Urine Ketones NEGATIVE mg/dL (NEGATIVE) 09/29/19 19:55 Urine Blood LARGE (NEGATIVE) H 09/29/19 19:55 Urine Nitrite NEGATIVE (NEGATIVE) 09/29/19 19:55 Urine Bilirubin NEGATIVE (NEGATIVE) 09/29/19 19:55 Urine Urobilinogen NEGATIVE mg/dL (<2.0) 09/29/19 19:55 Ur Leukocyte Esterase NEGATIVE (NEGATIVE) 09/29/19 19:55 Urine Ascorbic Acid NEGATIVE (NEGATIVE) 09/29/19 19:55 Urine Opiates Screen NEGATIVE 09/29/19 19:55 Urine Methadone Screen NEGATIVE 09/29/19 19:55 Ur Barbiturates Screen NEGATIVE 09/29/19 19:55 Ur Phencyclidine Scrn NEGATIVE 09/29/19 19:55 Ur Amphetamines Screen NEGATIVE 09/29/19 19:55 U Benzodiazepines Scrn NEGATIVE 09/29/19 19:55 Urine Cocaine Screen NEGATIVE 09/29/19 19:55 U Marijuana (THC) Screen NEGATIVE 09/29/19 19:55 RPR NONREACTIVE (NONREACTIVE) 09/29/19 20:42 Blood Type A POSITIVE 09/29/19 20:42 Antibody Screen NEGATIVE 09/29/19 20:42 Plan Health Concerns: BP Plan of Treatment: discharge home, see in office 1 week, rev S&S to report Goals: no complications Time Spent: Less than 30 Minutes
[2019-10-03] MEDS: LEVOTHYROXINE SODIUM 0.088 MG TABLET PO SCH (10:14)
[2019-10-03 15:12] VITALS: BP 116/67
== END 2019-10-03 18:00 | disposition home or self-care (01) | DRG 768 ==
LOC: LR 19:40 → 2S 10-01 09:27
PROVIDERS: ADMIT Obstetrics & Gynecology; ATTEND Obstetrics & Gynecology
PROC: 10E0XZZ Delivery of Products of Conception, External Approach (ICD-10-PCS; principal; 2019-10-01)
PROC: 0DQR0ZZ Repair Anal Sphincter, Open Approach (ICD-10-PCS; 2019-10-01)
DX: O13.4 Gestational [pregnancy-induced] hypertension without significant proteinuria, complicating childbirth (principal); Z37.0 Single live birth; O41.03X0 Oligohydramnios, third trimester, not applicable or unspecified; O99.284 Endocrine, nutritional and metabolic diseases complicating childbirth; E06.3 Autoimmune thyroiditis; O70.21 Third degree perineal laceration during delivery, IIIa; Z3A.39 39 weeks gestation of pregnancy
CPT/HCPCS: 36415; 80053; 80307; 81005; 83615; 84550; 85025; 85027; 86592; 86850; 86900; 86901; 88307; 94760; J0290; J1580; J2590; J3010; J3490; J7050; J7060